=== PATIENT | female | born 1930 | race Caucasian/White ===

== ENCOUNTER 2016-09-21 21:42 | Emergency (ER) | payer MEDICARE, OTHER ==
[~2016-09-21] VITALS: Ht 157.5 cm; Wt 77.1 kg
[~2016-09-21 21:42] MED LIST: ASPI325T4 PO; ATEN50TA PO; BUSP10TA PO; ESOM40CA PO; HYDR12.53 PO; OMEP20TA63 PO; TRAM50TA PO
[2016-09-21 23:18] LABS: BASO # 0.1 x10^3/uL (0.0-0.2); BASO % 1 % (0-3); EOS % 3 % (0-3); HEMATOCRIT 24.8 % (36.0-47.0); HEMOGLOBIN 7.7 g/dL (12.0-15.5); LYMPH # 2.5 x10^3/uL (1.0-4.8); LYMPH % 31 % (24-48); MEAN CORPUSCULAR HEMOGLOBIN 21 pg (25-35); MEAN CORPUSCULAR HGB CONC 31 g/dL (31-37); MEAN CORPUSCULAR VOLUME 68 fL (79-100); MONO % 11 % (0-9); NEUT % 54 % (31-73); PLATELET COUNT 317 x10^3/uL (140-400); RED BLOOD COUNT 3.63 x10^6/uL (3.50-5.40); RED CELL DISTRIBUTION WIDTH 17.4 % (11.5-14.5)
[2016-09-21 23:19] LABS: CALCIUM 9.2 mg/dL (8.5-10.1); CREATININE 0.9 mg/dL (0.6-1.0); GFR 59.5; POTASSIUM 4.1 mmol/L (3.5-5.1)
[2016-09-21 23:25] LABS: ALBUMIN/GLOBULIN RATIO 0.6 (1.0-1.7); TOTAL BILIRUBIN 0.2 mg/dL (0.2-1.0); TOTAL PROTEIN 8.2 g/dL (6.4-8.2)
--- NOTE | 2016-09-21 23:35 | PHYS DOC ---
Past Medical History Past Medical History: Anxiety, Arthritis, GERD, Hypertension Additional Past Medical Histor: hernia Past Surgical History: Hysterectomy Alcohol Use: None Drug Use: None Adult General Chief Complaint Chief Complaint: ABDOMINAL PAIN HPI HPI 85-year-old female presenting to the emergency department with right-sided abdominal pain for the past 2 weeks. She describes it in her right upper quadrant (nursing note says RLQ, i clarified. not RLQ. it is RUQ.) She reports it radiating to her back. She denies nausea vomiting. She describes the pain is mild to moderate and without alleviating factors. It is not associated with fever. Review of systems is negative for chest pain shortness of breath fevers or chills. She denies cough. He denies blood in her stool. All other review of systems is negative unless otherwise noted in history of present illness. Review of Systems Review of Systems SEE ABOVE. Current Medications Current Medications Current Medications Medications (Trade) Dose Ordered Sig/Karlie Start Time Stop Time Status Last Admin Dose Admin Info (Do NOT chart on this entry -- for MONITORING) 1 each PRN DAILY PRN 09/22/16 00:45 09/24/16 00:44 Iohexol (Omnipaque 300 Mg/ml) 75 ml 1X ONCE 09/22/16 01:00 09/22/16 01:01 DC 09/22/16 00:42 75 ML Allergies Allergies Allergies Coded Allergies Type Severity Reaction Last Updated Verified Penicillins Allergy Mild hives 06/17/14 No Physical Exam Physical Exam Constitutional: Well developed, well nourished, no acute distress, non-toxic appearance. HENT: Normocephalic, atraumatic, bilateral external ears normal, oropharynx moist, no oral exudates, nose normal. [] Eyes: PERRLA, EOMI, conjunctiva normal, no discharge. [] Neck: Normal range of motion, no tenderness, supple, no stridor. Cardiovascular:Heart rate regular rhythm, no murmur [] Lungs & Thorax: Bilateral breath sounds clear to auscultation [] Abdomen: Mild tenderness in the right upper quadrant without rebound tenderness or guarding present. Negative Mcneill sign. Negative McBurney's point. Skin: Warm, dry, no erythema, no rash. Back: No tenderness midline, mild right CVA tenderness. Extremities: No tenderness, no cyanosis, no clubbing, ROM intact, no edema. [] Neurologic: Alert and oriented X 3, normal motor function, normal sensory function, no focal deficits noted. [] Psychologic: Affect normal, judgement normal, mood normal. Current Patient Data Vital Signs Vital Signs Date Time Temp Pulse Resp B/P Pulse Ox O2 Delivery O2 Flow Rate FiO2 09/21/16 22:28 97.8 95 18 165/80 97 Room Air 97.8 Lab Values Laboratory Tests Test 09/21/16 23:00 09/21/16 23:51 White Blood Count 8.0x10^3/uL (4.0-11.0) Red Blood Count 3.63x10^6/uL (3.50-5.40) Hemoglobin 7.7g/dL (12.0-15.5) L Hematocrit 24.8% (36.0-47.0) L Mean Corpuscular Volume 68fL (79-100) L Mean Corpuscular Hemoglobin 21pg (25-35) L Mean Corpuscular Hemoglobin Concent 31g/dL (31-37) Red Cell Distribution Width 17.4% (11.5-14.5) H Platelet Count 317x10^3/uL (140-400) Neutrophils (%) (Auto) 54% (31-73) Lymphocytes (%) (Auto) 31% (24-48) Monocytes (%) (Auto) 11% (0-9) H Eosinophils (%) (Auto) 3% (0-3) Basophils (%) (Auto) 1% (0-3) Neutrophils # (Auto) 4.3x10^3uL (1.8-7.7) Lymphocytes # (Auto) 2.5x10^3/uL (1.0-4.8) Monocytes # (Auto) 0.9x10^3/uL (0.0-1.1) Eosinophils # (Auto) 0.2x10^3/uL (0.0-0.7) Basophils # (Auto) 0.1x10^3/uL (0.0-0.2) Platelet Estimate Adequate (ADEQUATE) Hypochromasia Mod Anisocytosis Slight Microcytosis Marked Target Cells Occ Sodium Level 143mmol/L (136-145) Potassium Level 4.1mmol/L (3.5-5.1) Chloride Level 106mmol/L (98-107) Carbon Dioxide Level 26mmol/L (21-32) Anion Gap 11 (6-14) Blood Urea Nitrogen 21mg/dL (7-20) H Creatinine 0.9mg/dL (0.6-1.0) Estimated GFR (Cockcroft-Gault) 59.5 BUN/Creatinine Ratio 23 (6-20) H Glucose Level 120mg/dL (70-99) H Lactic Acid Level 1.1mmol/L (0.4-2.0) Calcium Level 9.2mg/dL (8.5-10.1) Total Bilirubin 0.2mg/dL (0.2-1.0) Aspartate Amino Transferase (AST) 37U/L (15-37) Alanine Aminotransferase (ALT) 17U/L (14-59) Alkaline Phosphatase 99U/L (46-116) Troponin I Quantitative < 0.017ng/mL (0.000-0.055) Total Protein 8.2g/dL (6.4-8.2) Albumin 3.0g/dL (3.4-5.0) L Albumin/Globulin Ratio 0.6 (1.0-1.7) L Lipase 46U/L (73-393) L Urine Collection Type U cath Urine Color Yellow Urine Clarity Clear Urine pH 6.0 Urine Specific [place] 1.015 Urine Protein Negativemg/dL (NEG-TRACE) Urine Glucose (UA) Negativemg/dL (NEG) Urine Ketones (Stick) Negativemg/dL (NEG) Urine Blood Small (NEG) Urine Nitrite Negative (NEG) Urine Bilirubin Negative (NEG) Urine Urobilinogen Dipstick 0.2mg/dL (0.2 mg/dL) Urine Leukocyte Esterase Negative (NEG) Urine RBC 3-5/HPF (0-2) Urine WBC 0/HPF (0-4) Urine Squamous Epithelial Cells Few/LPF Urine Bacteria 0/HPF (0-FEW) Urine Mucus Slight/LPF Laboratory Tests 09/21/16 23:00 Laboratory Tests 09/21/16 23:00 EKG EKG [] Radiology/Procedures Radiology/Procedures [] Course & Med Decision Making Course & Med Decision Making Pertinent Labs and Imaging studies reviewed. (See chart for details) [] 85-year-old female presenting to the emergency department with right upper quadrant abdominal pain. Vital signs showed afebrile mild elevation in heart rate. Mild hypertension. Pertinent physical exam findings showed some mild pain in the right upper quadrant otherwise unremarkable. Blood work obtained. CBC shows anemia at 7.7. Previous was approximately 2 years ago at 13. The patient denies bloody stools. Chemistry panel otherwise shows mild uremia. Rectal exam showed no gross blood. CT of the abdomen pelvis shows suggestive cecal mass with hepatic metastatic disease. I sat down and discussed this with the patient and her . I believe this patient's anemia is chronic. She was hemodynamically stable. I recommended she follow up with her primary care doctor for referral to hematology oncology and our GI doctors. Dragon Disclaimer Dragon Disclaimer This electronic medical record was generated, in whole or in part, using a voice recognition dictation system. Departure Departure Impression: Primary Impression: Mass Additional Impressions: Liver lesion Microcytic anemia Disposition: HOME, SELF-CARE Condition: STABLE Referrals: NISHI RODRIGUEZ MD (PCP) Patient Instructions: Colon Mass, Adult Additional Instructions: Thank you for allowing us to participate in your care today. Followup with your primary care physician in 3 days if your symptoms do not improve. If you do not have a primary care provider you can ask for a list of our primary care providers. Return to the emergency department you have any new or concerning findings. This should be evaluated by the primary care physician and any necessary consulting services for continued management within a few days after discharge. Return to emergency room if you have any new or concerning symptoms including but not limited to fever, chills, nausea, vomiting, intractable pain, any new rashes, chest pain, shortness of air, uncontrolled bleeding, difficulty breathing, and/or vision loss. Problem Qualifiers SUMANTH CHRISTENSEN MD Sep 21, 2016 23:35
[2016-09-21 23:37] LABS: ANISOCYTOSIS SLIGHT; HYPOCHROMIA MOD; MICROCYTOSIS MARKED; PLT ESTIMATE ADEQUATE (ADEQUATE); TARGET CELLS OCC
[2016-09-21 23:57] LABS: BILIRUBIN,URINE NEGATIVE (NEG); GLUCOSE,URINE NEGATIVE (NEG); NITRITE,URINE NEGATIVE (NEG); PROTEIN,URINE NEGATIVE (NEG-TRACE); UROBILINOGEN,URINE 0.2 mg/dL (0.2 mg/dL)
[2016-09-22 00:02] LABS: BACTERIA,URINE 0 /HPF (0-FEW); SQUAMOUS EPITHELIAL CELL,UR FEW /LPF; WBC,URINE 0 /HPF (0-4)
[2016-09-22] MEDS ORDERED: IOHEXOL 300 MG/ML 75 ML VIAL ONE (00:21)
--- NOTE | 2016-09-22 00:33 | RAD ---
CT abdomen and pelvis with contrast Indication: Right side abdominal pain. Axial imaging through the abdomen and pelvis was performed after the administration of intravenous contrast. PQRS STATEMENT One or more of the following individualized dose reduction techniques were utilized for this study: 1.Automated exposure control. 2.Adjustment of the mA and/orkVaccording to patient size. 3.Use of iterative reconstruction technique. No prior studies are available for comparison. The heart appears enlarged. The lung bases are clear. There is a low-density mass in the left lobe of the liver measuring 4.2 centimeters. A smaller lesion in the posterior right lobe of the liver is also seen. There is a larger mass in the right lobe measuring 4.2 centimeters. Findings are worrisome for metastatic disease. The gallbladder is unremarkable. The pancreas is atrophic. The spleen is unremarkable. No adrenal mass is identified. The kidneys are unremarkable. Aorta and iliac vessels are heavily calcified but not aneurysmal. There is a midline ventral hernia containing a small bowel loop. No definite bowel obstruction is seen. No central retroperitoneal lymphadenopathy is identified. The bladder is unremarkable. No definite pelvic lymphadenopathy is identified. There is some soft tissue fullness identified in the right lower quadrant in the region of the cecum. A mass at the cecum is suspected, particularly in light of the findings in the liver. There are some adjacent nodular densities which may represent enlarged lymph nodes. The bony structures are unremarkable. Impression: Soft tissue fullness in the right lower quadrant in the region of the cecum with adjacent nodular densities. This is suspicious for a cecal mass and adjacent lymphadenopathy. There are numerous low-density masses within the liver which appear to be solid and most consistent with hepatic metastatic disease. Electronically signed by: Gavino Ge MD (Sep 22, 2016 00:31:58)
[2016-09-22] MEDS ORDERED: CONTRAST GIVEN MC PRN (00:45)
[2016-09-22] MEDS ORDERED: IOHEXOL 300 MG/ML 75 ML VIAL IV ONE (01:00)
[2016-09-22 01:12] VITALS: BP 189/79
[2016-09-22] MEDS ORDERED: HYDR-2666 PO (01:40)
[2016-09-22] MEDS ORDERED: ONDA4TAB10 SL (01:40)
[2016-09-22 06:53] LABS: NEG OBC FOB NEG; POS OBC FOB POS
== END 2016-09-22 01:45 | disposition home or self-care (01) ==
LOC: ER 21:42
DX: K76.9 Liver disease, unspecified (principal); D50.9 Iron deficiency anemia, unspecified; F41.9 Anxiety disorder, unspecified; I10 Essential (primary) hypertension; M19.90 Unspecified osteoarthritis, unspecified site; K21.9 Gastro-esophageal reflux disease without esophagitis; Z90.710 Acquired absence of both cervix and uterus
CPT/HCPCS: 36415; 74177; 80053; 81001; 82274; 83605; 83690; 84484; 85007; 85027; 99285; Q9967

== ENCOUNTER → 2016-10-18 | Outpatient (CLI) | payer MEDICARE, OTHER ==
[~2016-10-18] VITALS: Ht 157.5 cm; Wt 69.9 kg
[~2016-10-18] MED LIST changes: +HYDR-2666 PO; +ONDA4TAB10 SL
[2016-10-18 09:58] LABS: HEMATOCRIT 25.7 % (36.0-47.0); HEMOGLOBIN 7.9 g/dL (12.0-15.5)
[2016-10-18 10:06] VITALS: BP 170/70
[2016-10-18 11:37] VITALS: BP 195/84
[2016-10-18 12:37] VITALS: BP 180/76
[2016-10-18 13:25] VITALS: BP 170/73
== END | disposition home or self-care (01) ==
LOC: OPS 09:14
PROVIDERS: ATTEND Family Medicine
DX: D50.0 Iron deficiency anemia secondary to blood loss (chronic) (principal); C18.2 Malignant neoplasm of ascending colon
CPT/HCPCS: 36415; 36430; 85014; 85018; 86850; 86900; 86901; 86920; P9016

== ENCOUNTER 2016-10-25 16:57 | Inpatient (IN) | payer MEDICARE, OTHER ==
[~2016-10-25] VITALS: Ht 157.5 cm; Wt 77.1 kg
[2016-10-25] MEDS ORDERED: BACL10TA PO (22:39)
[2016-10-25 23:00] VITALS: BP 188/85
[2016-10-25 23:17] LABS: BASO # 0.1 x10^3/uL (0.0-0.2); BASO % 1 % (0-3); EOS % 2 % (0-3); HEMATOCRIT 31.8 % (36.0-47.0); LYMPH # 2.9 x10^3/uL (1.0-4.8); LYMPH % 31 % (24-48); MEAN CORPUSCULAR HEMOGLOBIN 23 pg (25-35); MEAN CORPUSCULAR HGB CONC 32 g/dL (31-37); MEAN CORPUSCULAR VOLUME 74 fL (79-100); MONO % 10 % (0-9); NEUT % 56 % (31-73); PLATELET COUNT 291 x10^3/uL (140-400); RED BLOOD COUNT 4.27 x10^6/uL (3.50-5.40); RED CELL DISTRIBUTION WIDTH 27.2 % (11.5-14.5); WHITE BLOOD COUNT 9.3 x10^3/uL (4.0-11.0)
[2016-10-25 23:26] LABS: INR 1.2 (0.8-1.1); PROTHROMBIN TIME PATIENT 14.2 SEC (11.7-14.0)
[2016-10-25 23:58] LABS: ANISOCYTOSIS MOD; HYPOCHROMIA SLIGHT; MICROCYTOSIS SLIGHT; PLT ESTIMATE ADEQUATE (ADEQUATE)
[2016-10-26] VITALS (8 sets, daily range): BP systolic 103–186; BP diastolic 43–95
--- NOTE | 2016-10-26 04:00 | HP ---
ADMIT DATE: 10/25/2016 CHIEF COMPLAINT: Probable colon cancer, anemia, hypocoagulability. HISTORY OF PRESENT ILLNESS: An 85-year-old white female who was seen in the ER about a month ago for abdominal pain and found to have a large cecal mass and lesions in the liver consistent with metastatic colon cancer. There was intraabdominal lymph node seen as well. She was set to have lower endoscopy, which she has not yet done after a bit of a delay and decided to do the procedure, but had to have 1 unit of packed red blood cell transfusion to get her hemoglobin up around 8. Subsequently, her INR was checked inadvertently and was found to be 5.1 even though she takes no anticoagulants. She has been on vitamin K orally for 2 days and is being admitted for coagulopathy workup in preparation for colonoscopy to make a tissue diagnosis. She denies overt melena, hematochezia or fever, but has had abdominal pain, weight loss. PAST HISTORY: Surgically, she has had a full hysterectomy, is her only surgery. ALLERGIES: SHE HAS ALLERGY LISTED TO PENICILLIN. MEDICATIONS: Include omeprazole, buspirone, tramadol and baclofen. FAMILY HISTORY: No known history of colon cancer. SOCIAL HISTORY: Former smoker, but has not smoked for 34 years. She is , lives with family, nondrinker as well. REVIEW OF SYSTEMS: She has had weight loss, fatigue, restless leg symptoms and exertional dyspnea. OBJECTIVE: ENT: Moderate pallor. Sclerae are clear. TMs and pharynx normal. NECK: Revealed no carotid bruits, nodes, thyroid enlargement or masses. LUNGS: Clear. CARDIOVASCULAR: Regular rate. Grade 2 systolic flow murmur over the precordium, no other murmurs heard. BREASTS: Not examined. ABDOMEN: Soft, benign, tender in the right upper quadrant and right lower quadrant. No overt masses are felt. EXTREMITIES: Nailbeds are pale. Pedal pulses are good. Mild edema. NEUROLOGIC: Physiologic, nonfocal, oriented x 4. ASSESSMENT: 1. Cecal mass, almost certainly advanced colon cancer with secondary anemia and what appears to be liver mets. 2. High INR, likely coagulopathy from liver metastases as she is not taking anticoagulants. 3. Anxiety disorder. PLAN: Preoperative coag tests and further vitamin K and possibly FFP to be administered in advance of diagnostic colonoscopy for tissue diagnosis. The patient and her family know that this is advanced cancer and is not curable at this point, but diagnosis ____ to be made. Plan otherwise per consultants. NISHI RODRIGUEZ MD DR: CUAUHTEMOC/louise JOB#: [id number] / [id number]
[2016-10-26] MEDS ORDERED: PROCHLORPERAZINE 5 MG TABLET. PO PRN (08:30)
[2016-10-26] MEDS ORDERED: TRAMADOL 50 MG TABLET. PO PRN (08:30)
[2016-10-26] MEDS ORDERED: ALPRAZOLAM 0.5 MG TABLET. PO PRN (08:30)
--- NOTE | 2016-10-26 08:31 | PDOC ---
Provider Note Provider Note vss, bp up but anxious , exam same - hb up 10 , inr normal after 2 days of vitamin k- for colonoscopy.bioppsy to dx cecal mass felt to br CA- c/o nausea, ? from iron- will add NISHI Hardin MD Oct 26, 2016 08:31
--- NOTE | 2016-10-26 09:23 | PDOC2 ---
GI CONSULT Reason For Consult: Colon mass HPI: HPI: 85 y/o female admitted w/ abd pain and elevated INR (as outpt - now normal), apparently supposed to have outpt colonoscopy today (cancelled procedure last week) for abd pain, constipation, n/v, weight loss, and abnormal CT. CT A/P last month showed suspected cecal mass w/ possible adjacent lymph nodes and possible metastatic disease w/ low-density masses within the liver. Office notes mention h/o GERD (she denies - is on PPI) and dysphagia. No previous colonoscopy or EGD. Ate clear this morning, seems as completed a partial prep. PMH: PMH: hysterectomy w/ BSO, right CTR, HTN, OA, anxiety/depression FH: Family History: No pertinent hx (denies GI cancers) Social History: Drugs: None ROS: GEN: Denies fevers, chills, sweats HEENT: Denies blurred vision, sore throat CV: Denies chest pain RESP: Denies shortness of air, cough GI: Per HPI : Denies hematuria, dysuria ENDO: +weight loss NEURO: Denies confusion, dizziness MSK: Denies weakness, joint pain/swelling SKIN: Denies jaundice, pruritus VItals: Vitals: Vital Signs Date Time Temp Pulse Resp B/P Pulse Ox O2 Delivery O2 Flow Rate FiO2 10/26/16 07:00 98.0 86 18 160/82 96 Room Air 98.0 Labs: Labs: Laboratory Tests Test 10/25/16 23:05 White Blood Count 9.3x10^3/uL (4.0-11.0) Red Blood Count 4.27x10^6/uL (3.50-5.40) Hemoglobin 10.0g/dL (12.0-15.5) Hematocrit 31.8% (36.0-47.0) Mean Corpuscular Volume 74fL (79-100) Mean Corpuscular Hemoglobin 23pg (25-35) Mean Corpuscular Hemoglobin Concent 32g/dL (31-37) Red Cell Distribution Width 27.2% (11.5-14.5) Platelet Count 291x10^3/uL (140-400) Neutrophils (%) (Auto) 56% (31-73) Lymphocytes (%) (Auto) 31% (24-48) Monocytes (%) (Auto) 10% (0-9) Eosinophils (%) (Auto) 2% (0-3) Basophils (%) (Auto) 1% (0-3) Neutrophils # (Auto) 5.3x10^3uL (1.8-7.7) Lymphocytes # (Auto) 2.9x10^3/uL (1.0-4.8) Monocytes # (Auto) 0.9x10^3/uL (0.0-1.1) Eosinophils # (Auto) 0.2x10^3/uL (0.0-0.7) Basophils # (Auto) 0.1x10^3/uL (0.0-0.2) Platelet Estimate Adequate (ADEQUATE) Hypochromasia Slight Anisocytosis Mod Microcytosis Slight Prothrombin Time 14.2SEC (11.7-14.0) Prothromb Time International Ratio 1.2 (0.8-1.1) Activated Partial Thromboplast Time 36SEC (24-38) Allergies: Coded Allergies: latex (Verified Allergy, Intermediate, Rash, 10/18/16) strawberry (Verified Allergy, Intermediate, Hives, 10/18/16) Penicillins (Verified Allergy, Mild, hives, 10/26/16) Medications: Please see EMR. Imaging: Imaging: CT A/P w/ IV contrast 09/21/16 The heart appears enlarged. The lung bases are clear. There is a low-density mass in the left lobe of the liver measuring 4.2 centimeters. A smaller lesion in the posterior right lobe of the liver is also seen. There is a larger mass in the right lobe measuring 4.2 centimeters. Findings are worrisome for metastatic disease. The gallbladder is unremarkable. The pancreas is atrophic. The spleen is unremarkable. No adrenal mass is identified. The kidneys are unremarkable. Aorta and iliac vessels are heavily calcified but not aneurysmal. There is a midline ventral hernia containing a small bowel loop. No definite bowel obstruction is seen. No central retroperitoneal lymphadenopathy is identified. The bladder is unremarkable. No definite pelvic lymphadenopathy is identified. There is some soft tissue fullness identified in the right lower quadrant in the region of the cecum. A mass at the cecum is suspected, particularly in light of the findings in the liver. There are some adjacent nodular densities which may represent enlarged lymph nodes. The bony structures are unremarkable. Impression: Soft tissue fullness in the right lower quadrant in the region of the cecum with adjacent nodular densities. This is suspicious for a cecal mass and adjacent lymphadenopathy. There are numerous low-density masses within the liver which appear to be solid and most consistent with hepatic metastatic disease. PE: GEN: NAD HEENT: Atraumatic, PERRL LUNGS: CTAB anteriorly HEART: S1S2 ABD: NABS, S/ND, diffusely tender, midline scar w/ firmness EXTREMITY: No edema SKIN: No rashes, no jaundice NEURO/PSYCH: A & O 3 A/P: A/P: Abnormal CT A/P -concerning for cecal mass w/ liver mets as above Abd pain, n/v, weight loss, constipation Anemia GERD, dysphagia Elevated INR - resolved -- Ate this morning - clears today w/ Miralax to complete prep. NPO at midnight. Colonoscopy tomorrow a.m. - d/w RN, GI lab. JULIO CESAR CASPER Oct 26, 2016 09:23
[2016-10-26] MEDS: PANTOPRAZOLE 40 MG TABLET.DR. PO SCH (09:40)
[2016-10-26] MEDS: AMLODIPINE BESYLATE 5 MG TABLET. PO SCH (09:40)
[2016-10-26] MEDS: busPIRone 10 MG TABLET. PO SCH ×2 (09:40→21:29)
--- NOTE | 2016-10-26 12:42 | EKG ---
[facility] [address] [place] [address] Test Date: 2016-10-26 Test Time: 12:34:55 Pat Name: ADELAIDA PEPPER Department: Room: 658 1 Gender: F Checking Department Supervisor: CHANTAL : 1930 Requested By: NISHI RODRIGUEZ Order Number: [id number] Reading MD: Zainab Marlow Measurements Intervals [place] Rate: 153 P: AK: QRS: 62 QRSD: 76 T: 28 QT: 274 QTc: 442 Interpretive Statements SUPRAVENTRICULAR TACHYCARDIA ST ABNORMALITY, POSSIBLE INFERIOR SUBENDOCARDIAL INJURY ABNORMAL ECG RI6.01 Compared to ECG 06/17/2014 12:49:01 ST (T wave) deviation now present Sinus tachycardia no longer present Electronically Signed On 10-27-2016 12:09:13 CDT by Zainab Marlow
[2016-10-26] MEDS ORDERED: DIGOXIN IV 500 MCG/2 ML AMPUL. IV ONE (13:30)
[2016-10-26] MEDS ORDERED: ADENOSINE 6 MG/2 ML VIAL. IV ONE (13:45)
[2016-10-26] MEDS ORDERED: POLYETHYLENE GLYCOL 3350 238 GM POWDER PO ONE (14:00)
--- NOTE | 2016-10-26 14:01 | PDOC2 ---
ILDA TORRES SNOW GROOMER 10/26/16 1401: CARDIAC CONSULT DATE OF CONSULT Date of Consult DATE: 10/26/16 TIME: 13:57 REASON FOR CONSULT Reason for Consult: New onset SVT REFERRING PHYSICIAN Referring Physician: Dr. Jarrell SOURCE Source: Chart review, Patient HISTORY OF PRESENT ILLNESS HISTORY OF PRESENT ILLNESS This is a 85 yo female who was admitted secondary to abdominal pain and elevated INR. Pain has been ongoing for the last couple of years. Recent CT concerning for cecal mass. Now high suspicion for liver mets. Was scheduled to have colonoscopy last week as an outpatient, but was canceled due to anemia and elevated INR. Received 1 unit PRBC's and vit K. Colonoscopy tentatively planned for the am. During hospitalizations, was noted to be in SVT, which prompted this consults. Patient reports history of intermittent palpitations and tachycardia episodes. Patient reports she just "deals with them". Episodes generally resolve with in an hour, without intervention. Denies any chest pain, dizziness, diaphoresis, SOA, orthopnea, LE edema, or nausea/vomiting. IV Dig given without response. Converted with adenosine 6mg. Now maintaining SR. PAST MEDICAL HISTORY Cardiovascular: HTN Pulmonary: No pertinent hx GI: Constipation Heme/Onc: Other (DVT ) Hepatobiliary: No pertinent hx Psych: No pertinent hx Musculoskeletal: Osteoarthritis Rheumatologic: No pertinent hx Infectious disease: No pertinent hx ENT: No pertinent hx Renal/: No pertinent hx Endocrine: No pertinent hx Dermatology: No pertinent hx PAST SURGICAL HISTORY Past Surgical History: Hysterectomy FAMILY HISTORY Family History: Heart Disease SOCIAL HISTORY Smoke: No ALCOHOL: none Drugs: None Lives: Alone CURRENT MEDICATIONS CURRENT MEDICATIONS Current Medications Medications (Trade) Dose Ordered Sig/Karlie Route PRN Reason Start Time Stop Time Status Last Admin Dose Admin Buspirone HCl (Buspar) 10 mg BID PO 10/26/16 09:00 10/26/16 09:40 Tramadol HCl (Ultram) 50 mg PRN Q8HRS PRN PO PAIN 10/26/16 08:30 10/26/16 09:39 Pantoprazole Sodium (Protonix) 40 mg DAILYAC PO 10/26/16 09:00 10/26/16 09:40 Alprazolam (Xanax) 0.5 mg PRN Q8HRS PRN PO ANXIETY / AGITATION 10/26/16 08:30 10/26/16 09:40 Prochlorperazine Maleate (Compazine) 5 mg PRN Q6HRS PRN PO NAUSEA/VOMITING 10/26/16 08:30 10/26/16 09:40 Amlodipine Besylate (Norvasc) 5 mg DAILY PO 10/26/16 09:00 10/26/16 09:40 Digoxin (Lanoxin) 500 mcg 1X ONCE IV 10/26/16 13:30 10/26/16 13:31 DC 10/26/16 13:02 Adenosine (Adenocard) 6 mg 1X ONCE IV 10/26/16 13:45 10/26/16 13:46 DC 10/26/16 13:48 ALLERGIES ALLERGIES: Coded Allergies: latex (Verified Allergy, Intermediate, Rash, 10/18/16) strawberry (Verified Allergy, Intermediate, Hives, 10/18/16) Penicillins (Verified Allergy, Mild, hives, 10/26/16) ROS Review of System 14 point ROS conducted with pertinent positives noted above in HPI. PHYSICAL EXAM General: Alert, Oriented X3, Cooperative, No acute distress HEENT: Atraumatic, Mucous membr. moist/pink Lungs: Clear to auscultation, Normal air movement Heart: Regular rate, Normal S1, Normal S2, Other (2/6 systolic murmur, tele SR) Abdomen: Soft Extremities: No edema, Normal pulses Skin: No breakdown, No significant lesion Neuro: Normal speech, Sensation intact Psych/Mental Status: Mental status NL, Mood NL MUSCULOSKELETAL: Osteoarthritic changes both hands VITALS VITALS Vital Signs Date Time Temp Pulse Resp B/P Pulse Ox O2 Delivery O2 Flow Rate FiO2 10/26/16 13:41 98.2 140 20 103/55 97 Room Air 98.2 LABS Lab: Laboratory Tests Test 10/25/16 23:05 10/26/16 12:28 White Blood Count 9.3x10^3/uL (4.0-11.0) Red Blood Count 4.27x10^6/uL (3.50-5.40) Hemoglobin 10.0g/dL (12.0-15.5) Hematocrit 31.8% (36.0-47.0) Mean Corpuscular Volume 74fL (79-100) Mean Corpuscular Hemoglobin 23pg (25-35) Mean Corpuscular Hemoglobin Concent 32g/dL (31-37) Red Cell Distribution Width 27.2% (11.5-14.5) Platelet Count 291x10^3/uL (140-400) Neutrophils (%) (Auto) 56% (31-73) Lymphocytes (%) (Auto) 31% (24-48) Monocytes (%) (Auto) 10% (0-9) Eosinophils (%) (Auto) 2% (0-3) Basophils (%) (Auto) 1% (0-3) Neutrophils # (Auto) 5.3x10^3uL (1.8-7.7) Lymphocytes # (Auto) 2.9x10^3/uL (1.0-4.8) Monocytes # (Auto) 0.9x10^3/uL (0.0-1.1) Eosinophils # (Auto) 0.2x10^3/uL (0.0-0.7) Basophils # (Auto) 0.1x10^3/uL (0.0-0.2) Platelet Estimate Adequate (ADEQUATE) Hypochromasia Slight Anisocytosis Mod Microcytosis Slight Prothrombin Time 14.2SEC (11.7-14.0) Prothromb Time International Ratio 1.2 (0.8-1.1) Activated Partial Thromboplast Time 36SEC (24-38) Glucose (Fingerstick) 96mg/dL (70-99) ASSESSMENT/PLAN ASSESSMENT/PLAN 1. SVT; suspected paroxysmal 2. Probable metastatic colon cancer. 3. Elevated INR; s/p 1 unit PRBC and vit K- INR now 1.2 4. Anemia 5. Hypertension Recommendations Add BB for SVT suppression Check TSH, echo Consider event monitor at discharge. 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 No acute indication for anticoagulation at this time. Wishes to go home on hospice. LV function normal Low dose [id number] Supportive care. Pls call with questions. Problems: ILDA TORRES APRN Oct 26, 2016 14:01 NA COTA MD Oct 26, 2016 18:30
[2016-10-26] MEDS: METOPROLOL SUCC 24HR ER 25 MG TAB.ER.24H. PO SCH (15:54)
--- NOTE | 2016-10-26 16:33 | ACF ---
Admission Forms Criteria HEMATOLOGY GRG Clinical Indications for Admission to Inpatient Care (Place 'X' for any and all applicable criteria): Hospital admission is needed for appropriate care of the patient because of ANY ONE of the following: [ ]I. Severe anemia indicated by ANY ONE of the following (1)(2) [ ]a) Altered mental status [ ]b) Syncope [ ]c) Other findings suggesting inadequate perfusion [ ]d) Chest pain [ ]e) Exertional dyspnea [ ]f) Treatment with transfusion or volume replacement is ineffective at resolving ANY ONE of the following [A]: [ ]i) Tachycardia for age [ ]ii) Orthostatic vital sign changes as indicated by ANY ONE of the following (3) [ ]1) Fall in SBP of 20 mm Hg or more 1 to 3 minutes after patient sits or stands from recumbent position [ ]2) Fall in DBP of 10 mm Hg or more 1 to 3 minutes after patient sits or stands from recumbent position [ ]II. High-risk febrile neutropenia [B] as indicated by ANY ONE of the following(4)(5) [ ]a) Hemodynamic instability [ ]b) Hypoxemia [ ]c) Tachypnea [ ]d) Altered mental status [ ]e) New onset abdominal pain [ ]f) New onset vomiting or diarrhea [ ]g) Pneumonia [ ]h) Profound neutropenia [C] anticipated to extend for more than 7 days [ ]i) Oral or gastrointestinal mucositis that interferes with swallowing or causes severe diarrhea [ ]j) Evidence of significant focal infection (eg, cellulitis, central line or catheter infection, perirectal abscess) [ ]k) Leukemia or lymphoma induction therapy [ ]l) Bone marrow transplant patient [ ]m) Renal insufficiency (eg, GFR of less than 30 mL/min/1.73m2 (0.5 mL/sec/1.73m2) [ ]n) Severe liver dysfunction (transaminase levels greater than 5 times normal) [ ]o) Platelet count less than 50,000/mm3 (50 x109/L)(6) [ ]p) [employer] Supportive Care in Cancer (MASCC) Risk Index score of < 21 [D] [ ]III. High-risk low platelet count as indicated by ANY ONE of the following(8) (9) [ ]a) Severe or life-threatening bleeding (eg, intracranial, major gastrointestinal, or extensive mucosal bleeding), with any reduced platelet count [ ]b) Platelet count less than 20,000/mm3 (20 x109/L) with any active bleeding [ ]c) Platelet count less than 10,000/mm3 (10 x109/L) with minor purpura or petechiae [ ]d) Platelet count less than 5000/mm3 (5 x109/L) [ ]e) Low platelet count with hemolytic anemia [ ]IV.Active hemolysis with high-risk findings, including ANY ONE of the following(2)(10)(11) [ ]a) Hematocrit less than 25% (0.25) [ ]b) Rapidly progressing anemia [ ]c) Thrombocytopenia(12)(13) [ ]d) Evidence of thrombosis or new renal insufficiency [ ]V. Bleeding disorder with high-risk features (eg, hemophilia, coagulopathy) as indicated by ANY ONE of the following (2)(14)(15) [ ]a) Central nervous system bleeding [ ]b) Retroperitoneal bleeding [ ]c) Retropharyngeal bleeding [ ]d) Gastrointestinal bleeding (22) [ ]e) Purpura [ ]f) Disseminated intravascular coagulation(23) [ ]g) Major trauma [ ]h) Deep laceration [ ]i) Head trauma [ ]j) Any trauma with internal hematoma (eg, retroperitoneal, ocular) [ ]k) Failed outpatient management [X]. Severe over-anticoagulation or high-risk situation as indicated by ANY ONE of the following(24)(25) [ ]a) Active bleeding [X]b) International normalized ratio 5 or greater and rapid reversal needed [ ]c) International normalized ratio 9 or greater [ ]VII. Congenital immunodeficiency states with severe morbidity as indicated by ANY ONE of the following(26)(27) [ ]a) Severe infection [ ]b) Bone marrow transplant needed (Also use Medical Oncology GRG) [ ]VIII. Hyperviscosity syndrome with high-risk indicators indicated by ANY ONE of the following (2)(28)(29)(30)(31) [ ]a) Polycythemia vera with hematocrit greater than 60% (0.60) [ ]b) Elevated platelet count associated with thrombosis, bleeding, or life-threatening organ dysfunction [ ]c) Severe signs or symptoms from elevated red cell, white cell, or protein levels, including ANY ONE of the following: [ ]i) Mental status change [ ]ii) Dyspnea [ ]iii) Chest x-ray infiltrate [ ]iv) Visual changes [ ]v) Retinal abnormalities [ ]vi) Neuromuscular symptoms [ ]vii) Suspected ischemia or thrombosis [ ]viii) Bleeding [ ]IX. Methemoglobinemia greater than 15% (0.15) or severe symptoms persist after emergency treatment (32)(33) [ ]X. Spleen trauma with blood loss or other need for acute (medical) treatment (34) [ ]XI. Hematology condition and ALL of the following: [ ]a) Symptom or finding for which emergency and observation care have failed or are not considered appropriate (Also use General Criteria: Observation Care as appropriate) [ ]b) Presence of ANY ONE of the following: [ ]i) A General Admission Criteria [ ]ii) A Pediatric General Admission Criteria [facility] content created by [facility] has been revised. The portions of the content which have been revised are identified through the use of italic text or in bold, and [facility] has neither reviewed nor approved the modified material. All other unmodified content is copyright [facility]. Please see references footnoted in the original [facility] edition 2016 Admission Criteria Met?: Yes NGUYEN HANLEY Oct 26, 2016 16:33
--- NOTE | 2016-10-26 16:34 | CARD ---
APPROVED REPORT EXAM: Two-dimensional and M-mode echocardiogram with Doppler and color Doppler. Other Information Quality : GoodHR: 87bpm Rhythm : NSR INDICATION SVT 2D DIMENSIONS RVDd3.2 (2.9-3.5cm)Left Atrium(2D)3.9 (1.6-4.0cm) IVSd0.9 (0.7-1.1cm)Aortic Root(2D)2.9 (2.0-3.7cm) LVDd4.0 (3.9-5.9cm)LVOT Diameter2.1 (1.8-2.4cm) PWd1.0 (0.7-1.1cm)LVDs2.4 (2.5-4.0cm) FS (%) 40.2 %SV50.0 ml Aortic Valve AoV Peak Refugio.138.4cm/sAoV VTI27.2cm AO Peak GR.7.7mmHgLVOT VTI 27.00cm AO Mean GR.4mmHg Mitral Valve MV E Agxytifk75.7cm/sMV E Peak Gr.6mmHg MV DECEL [id number] A Yuqbikso599.6cm/s MV E Mean Gr.3mmHgE/A Ratio0.6 MV A [id number] TDI Lateral E' P. V8.59cm/sMedial E' P. V7.60cm/s E/Lateral E'8.1E/Medial E'9.2 Pulmonary Vein S1 Wfjmpwll29.6cm/sS2 Gamshwht79.84cm/s D2 Jhflunbl41.8cm/sPVa [id number] LEFT VENTRICLE The left ventricle is normal size. There is normal left ventricular wall thickness. The left ventricu lar systolic function is normal and the ejection fraction is within normal range. The Ejection Fracti on is 65-70%. There is normal LV segmental wall motion. Transmitral Doppler flow pattern is Grade I-a bnormal relaxation pattern. RIGHT VENTRICLE The right ventricle is normal size. There is normal right ventricular wall thickness. The right ventr icular systolic function is normal. ATRIA The left atrium size is normal. The right atrium size is normal. The interatrial septum is intact wit h no evidence for an atrial septal defect or patent foramen ovale as noted on 2-D or Doppler imaging. AORTIC VALVE The aortic valve is mildly thickened. The aortic valve is trileaflet. Doppler and Color Flow revealed no significant aortic regurgitation. There is no significant aortic valvular stenosis. MITRAL VALVE The mitral valve leaflets are thickened. There is no evidence of mitral valve prolapse. There is no m itral valve stenosis. Doppler and Color Flow revealed mild mitral regurgitation. TRICUSPID VALVE Doppler and Color Flow revealed mild to moderate tricuspid regurgitation. The pulmonary artery systol ic pressure is estimated at 39 mmHg. PULMONIC VALVE Doppler and Color Flow revealed trace pulmonic valvular regurgitation. There is no pulmonic valvular stenosis. GREAT VESSELS The aortic root is normal in size. The ascending aorta is normal in size. The pulmonary artery is nor mal. The IVC is normal in size and collapses >50% with inspiration. PERICARDIAL EFFUSION There is no evidence of significant pericardial effusion. Critical Notification Critical Value: No <Conclusion> The left ventricle is normal size. The left ventricular systolic function is normal and the ejection fraction is within normal range. The Ejection Fraction is 65-70%. There is no significant aortic valvular stenosis. Doppler and Color Flow revealed no significant aortic regurgitation. Doppler and Color Flow revealed mild mitral regurgitation. Doppler and Color Flow revealed mild to moderate tricuspid regurgitation. The pulmonary artery systolic pressure is estimated at 39 mmHg.
[2016-10-26] MEDS ORDERED: BACLOFEN 10 MG TABLET. PO SCH (21:00)
[2016-10-27 03:45] VITALS: BP 149/34
[2016-10-27 07:00] VITALS: BP 104/47
[2016-10-27] MEDS ORDERED: IV RINGERS,LACTATED 1000ML 1,000 ML IV SCH (07:00)
[2016-10-27] MEDS: METOPROLOL SUCC 24HR ER 25 MG TAB.ER.24H. PO SCH (08:32)
[2016-10-27] MEDS: busPIRone 10 MG TABLET. PO SCH (08:32)
[2016-10-27] MEDS: PANTOPRAZOLE 40 MG TABLET.DR. PO SCH (08:32)
[2016-10-27] MEDS: AMLODIPINE BESYLATE 5 MG TABLET. PO SCH (08:36)
--- NOTE | 2016-10-27 08:44 | DISCH ---
DISCHARGE INSTRUCTIONS Condition on Discharge Condition on Discharge: Stable Activity After Discharge Activity Instructions for Disc: No restrictions Diet after Discharge Diet after Discharge: Low Sodium 4 gm Follow-Up Follow up with: dr zamorano 1 week NISHI RODRIGUEZ MD Oct 27, 2016 08:44
--- NOTE | 2016-10-27 08:48 | PDOC ---
Provider Note Provider Note [id number] NISHI RODRIGUEZ MD Oct 27, 2016 08:48
--- NOTE | 2016-10-27 10:39 | PDOC ---
Subjective: Subjective: Decided against colonoscopy. Tolerating diet, pain managed. Objective: Vital Signs: Vital Signs Date Time Temp Pulse Resp B/P Pulse Ox O2 Delivery O2 Flow Rate FiO2 10/27/16 08:36 70 135/60 10/27/16 07:00 98.1 18 94 Room Air 98.1 Labs: Laboratory Tests Test 10/26/16 12:28 Glucose (Fingerstick) 96mg/dL PE: GEN: NAD LUNGS: clear anteriorly HEART: RRR ABD: non-tender NEURO/PSYCH: A & O 3 A/P: Cecal mass w/ liver mets Abd pain, n/v, weight loss, constipation -- Pt prefers to avoid colonoscopy. Plans for home w/ Hospice.. JULIO CESAR CASPER Oct 27, 2016 10:39 TRAVIS TORRES MD Oct 27, 2016 11:05
[2016-10-27 10:55] VITALS: BP 141/45
[2016-10-27] MEDS ORDERED: METO25TA9 PO (11:04)
[2016-10-27] MEDS ORDERED: AMLO5TAB2 PO (11:04)
--- NOTE | 2016-10-27 11:05 | PDOC2 ---
PALLIATIVE CARE Palliative Care Note Palliative Care Consult requested by Dr. Rosas to address plan of care. Diagnosis: Cecal mass, almost certainly advanced colon cancer with secondary anemia and what appears to be liver mets. High INR, likely coagulopathy from liver metastases as she is not taking anticoagulants.. Anxiety disorder; SVT suspected paroxysmal: HTN Met with patient and son Benigno Reviewed current medical condition. Patient does not want to proceed with GI work-up. Would like to go home with Hospice. Family is familiar with Hospice. They would like a hospice agency connected to Hospice Facility. Options discussed; Family has chosen [facility]. Discussed Resuscitation; Patient wants to remain Full Code. Will discuss with Hospice. Plan: Home with Hospice. [facility] Full Code. Estefani GRIGGS will fax information to [facility] DME: Bed; W/C equipment does not need to be in place before patient arrives home. Family will transport home. Contact name and number per face sheet. ANGELA LEVIN Oct 27, 2016 11:05
--- NOTE | 2016-10-27 16:58 | DS ---
DATE OF DISCHARGE: 10/27/2016 HOSPITAL SUMMARY: An 85-year-old white female with known colon mass and suspected diagnosis of colon cancer with metastasis to the liver who came in for anemia and high INR in preparation for a colonoscopy. She had taken 2 days of oral vitamin K as an outpatient, and her INR has come down from 5.1 to 1.2. Hemoglobin was improved at 10.0 and an MCV low at 74. She initially had planned on pursuing the colonoscopy but then after thinking and discussion with the family she decided not to pursue that test to make the diagnosis of presumed colon cancer. She had an episode of SVT while on the floor and was transferred to telemetry and converted with ____ , and metoprolol was added, and she is feeling comfortable to be followed as an outpatient at this point. FINAL DIAGNOSES: 1. 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 2. Microcytic anemia secondary to gastrointestinal bleeding from colon mass. 3. Hypoprothrombinemia, resolved with vitamin K. 4. SVT, resolved. OPERATIONS, PROCEDURES, COMPLICATIONS: None. CONSULTATIONS: Dr. Asif, Dr. Rosas's group. DISPOSITION: We will add metoprolol 25 mg twice a day to her home medications perhaps for prophylaxis against SVT which has happened in the past. Home medications will remain the same. She is to stay off aspirin because of the GI bleeding which she will continue to have, and she wishes to be followed as an outpatient with comfort care and DNR at this point. NISHI RODRIGUEZ MD DR: CUAUHTEMOC/louise JOB#: [id number] / [id number]
== END 2016-10-27 13:15 | disposition hospice, home (50) | DRG 375 ==
LOC: 6 SOUTH 21:42 → 2 NORTH 10-26 13:21
PROVIDERS: ADMIT Family Medicine; ATTEND Family Medicine
DX: C18.9 Malignant neoplasm of colon, unspecified (principal); C78.7 Secondary malignant neoplasm of liver and intrahepatic bile duct; D68.2 Hereditary deficiency of other clotting factors; I47.1 Supraventricular tachycardia; C77.9 Secondary and unspecified malignant neoplasm of lymph node, unspecified; D50.0 Iron deficiency anemia secondary to blood loss (chronic); F32.9 Major depressive disorder, single episode, unspecified; F41.9 Anxiety disorder, unspecified; I10 Essential (primary) hypertension; M19.90 Unspecified osteoarthritis, unspecified site; Z51.5 Encounter for palliative care; K21.9 Gastro-esophageal reflux disease without esophagitis; Z66 Do not resuscitate; Z90.710 Acquired absence of both cervix and uterus; Z88.0 Allergy status to penicillin; Z87.891 Personal history of nicotine dependence; Z88.8 Allergy status to other drugs, medicaments and biological substances; Z91.040 Latex allergy status; Z86.718 Personal history of other venous thrombosis and embolism; Z82.49 Family history of ischemic heart disease and other diseases of the circulatory system
CPT/HCPCS: 36415; 82947; 84443; 85007; 85027; 85610; 85730; 93005; 93306; J0153; J1160; Q0164